=== PATIENT | female | born 1955 | race Caucasian/White ===

== ENCOUNTER 2021-03-24 20:32 | Emergency (ER) | payer MEDICARE, MEDICAID ==
[~2021-03-24] VITALS: Ht 160 cm; Wt 63.0 kg
[2021-03-24] MEDS ORDERED: acetaminophen 325mg tablet PO ONE ×2 (22:30→23:05)
[2021-03-25] VITALS: BP 170/94
[2021-03-25] MEDS ORDERED: TETanus/Pertussis (Acell)/Diphther VAC/PF (Tdap-Adult) 0.5ml syringe IMVAC ONE
--- NOTE | 2021-03-25 | NUR ---
PT REPEATEDLY ATTMEPTING TO AMBULATE FROM UNIT IN ANY DIRECTION SHE CAN FIND. PT BELIEVES HER DAUGHTER IS OUTSIDE WAITING FOR HER BUT THAT IS UNTRUE. PT COOOPERATIVE WHEN REDIRECTED BACK INSIDE TO WAIT FOR RESULT OF CT.
== END 2021-03-25 00:29 | disposition home or self-care (01) ==
LOC: ER 20:33
DX: S01.81XA Laceration without foreign body of other part of head, initial encounter (principal); Z72.89 Other problems related to lifestyle; W19.XXXA Unspecified fall, initial encounter; Y93.89 Activity, other specified; Y92.89 Other specified places as the place of occurrence of the external cause; Y99.8 Other external cause status
CPT/HCPCS: 70450; 70486; 72125; 90471; 90715; 99285

== ENCOUNTER 2022-08-03 14:38 | Inpatient (IN) | payer MEDICARE, MEDICAID ==
[~2022-08-03] VITALS: Ht 165.1 cm; Wt 63.0 kg
[2022-08-03] MEDS ORDERED: normal saline 1000ML IV soln IV ONE (14:50)
[2022-08-03] MEDS ORDERED: CefTRIAXone 2gm/D5W 50ml BAG 50 ML IV ONE (14:50)
[2022-08-03] MEDS ORDERED: acetaminophen 325mg tablet PO STA (14:50)
[2022-08-03 16:03] LABS: BASOPHILS % (AUTO) 0.4 % (0-1); EOSINOPHILS # (AUTO) 0.1 X10'3 (0-0.9); EOSINOPHILS % (AUTO) 0.6 % (0-6); HEMATOCRIT 44.8 % (35.0-45.0); HEMOGLOBIN 15.2 g/dl (12.0-16.0); LYMPHOCYTES # (AUTO) 1.6 X10'3 (1.1-4.8); LYMPHOCYTES % (AUTO) 19.1 % (21-51); MEAN CORPUSCULAR HEMOGLOBIN 32.4 PG (27.0-31.0); MEAN CORPUSCULAR HGB CONC 33.9 g/dL (33.0-36.5); MEAN CORPUSCULAR VOLUME 95.7 FL (78-98); MEAN PLATELET VOLUME 8.9 FL (7.4-10.4); MONOCYTES # (AUTO) 0.8 X10'3 (0-0.9); MONOCYTES % (AUTO) 8.8 % (2-12); NEUTROPHILS # (AUTO) 6.1 X10'3 (1.8-7.7); NEUTROPHILS % (AUTO) 71.1 % (42-75); PLATELET COUNT 243 X10'3 (140-440); RED BLOOD COUNT 4.68 X10'6 (4.20-5.60); RED CELL DISTRIBUTION WIDTH 13.2 % (11.5-14.5); WHITE BLOOD COUNT 8.6 X10'3 (4.5-11.0)
[2022-08-03 16:18] LABS: ALANINE AMINOTRANSFERASE 34 U/L (12-78); ALBUMIN 4.6 G/DL (3.4-5.0); ALBUMIN/GLOBULIN RATIO 1.2 (1.1-1.5); ALKALINE PHOSPHATASE 82 IU/L (46-116); ANION GAP 12 (8-16); ASPARTATE AMINO TRANSFERASE 74 U/L (10-37); BILIRUBIN,TOTAL 1.1 MG/DL (0.1-1.0); BLOOD UREA NITROGEN 53 MG/DL (7-18); BUN/CREATININE RATIO 29.1 (6.6-38.0); CALCIUM 10.2 MG/DL (8.5-10.1); CHLORIDE 98 MMOL/L (99-107); CREATININE 1.82 MG/DL (0.40-0.90); GLUCOSE 131 MG/DL (70-104); POTASSIUM 3.5 MMOL/L (3.5-5.1); SODIUM 141 MMOL/L (135-145); TOTAL CARBON DIOXIDE 30.7 MMOL/L (24-32); TOTAL PROTEIN 8.6 G/DL (6.4-8.2); eGFR 28 ML/MIN
[2022-08-03 17:32] LABS: CLARITY,URINE CLEAR (Clear); COLOR,URINE YELLOW (Yellow); GLUCOSE, URINE NEGATIVE (Neg); KETONES,URINE 15 mg/dl (Neg); LEUKOCYTE ESTERASE ,URINE NEGATIVE (Neg); NITRITES, URINE NEGATIVE (Neg); OCCULT BLOOD,URINE TRACE-INTACT (Neg); PH,URINE 5.5 (4.8-8.0); PROTEIN,URINE 100 mg/dl (Neg); UROBILINOGEN,URINE 0.2 E.U/dL (0.2-1.0)
[2022-08-03 17:45] LABS: UA COLLECTION TYPE STRAIGHT CATH
[2022-08-03] MEDS ORDERED: mag hydrox/Alum hydrox/simeth 30ml oral suspension PO PRN (17:45)
[2022-08-03] MEDS ORDERED: acetaminophen 325mg tablet PO PRN (17:45)
[2022-08-03] MEDS ORDERED: magnesium Cl slow-release 64mg tablet PO PRN (17:45)
[2022-08-03] MEDS ORDERED: magnesium hydroxide 30ml (MOM) UD suspension PO PRN (17:45)
[2022-08-03] MEDS ORDERED: potassium Cl 40MEQ/1/2NS 520ml 520 ML IV PRN (17:45)
[2022-08-03] MEDS ORDERED: ondansetron/PF 4mg/2ml inj IV PRN (17:45)
[2022-08-03] MEDS ORDERED: magnesium 4gm in 100ml NS 100 ML IV PRN (17:45)
[2022-08-03] MEDS ORDERED: potassium Cl 20 mEq SR tablet PO PRN (17:45)
[2022-08-03 17:47] LABS: BACTERIA,URINE 3+ /HPF (Neg); RBC,URINE 0-2 /HPF (0-2); SQUAMOUS EPITHELIAL CELL,UR NONE SEEN /LPF (FEW); WBC,URINE 0-4 /HPF (0-4)
[2022-08-03] MEDS: normal saline 1000ml 1,000 ML IV SCH (18:06)
--- NOTE | 2022-08-03 19:06 | NUR ---
Patient resting comfortably on gurney, pending admit. She did wake and is able to answer basic questions and follow direction, but still has some confusion
[2022-08-03] MEDS: docusate sod 100mg capsule PO SCH (20:00)
[2022-08-03] MEDS: K and/or MAG REPLACEMENT MC SCH (20:00)
--- NOTE | 2022-08-03 22:45 | NUR ---
Patient came up from ER on a Gurney. Patient is now in bed resting in a semi-fowlers position. Patient is alert and oriented times 4. Call light is within reach and all personal belongings within reach.
--- NOTE | 2022-08-04 02:00 | NUR ---
Dr. Salinas made aware patient pulse is 44 but has gone up to 50s. No new orders given
[2022-08-04 03:00] VITALS: BP 145/66
[2022-08-04] MEDS: normal saline 1000ml 1,000 ML IV SCH ×3 (03:52→23:45)
--- NOTE | 2022-08-04 04:00 | NUR ---
Dr. Salinas made aware of patient pauses on tele monitor, no new orders given
[2022-08-04 06:00] VITALS: BP 142/82
--- NOTE | 2022-08-04 06:12 | NUR ---
Patient in bed with the head of the bed elevated to a semi-fowlers position. Patient has no sogns or symptoms of distress. Call light within reach and all personal belongings within reach
[2022-08-04 06:23] LABS: ALBUMIN 3.7 G/DL (3.4-5.0); ANION GAP 8 (8-16); BLOOD UREA NITROGEN 51 MG/DL (7-18); BUN/CREATININE RATIO 35.2 (6.6-38.0); CALCIUM 8.9 MG/DL (8.5-10.1); CHLORIDE 102 MMOL/L (99-107); CREATININE 1.45 MG/DL (0.40-0.90); GLUCOSE 73 MG/DL (70-104); MAGNESIUM 2.3 MG/DL (1.5-2.4); SODIUM 140 MMOL/L (135-145); eGFR 36 ML/MIN
[2022-08-04 06:26] LABS: BASOPHILS % (AUTO) 0.5 % (0-1); EOSINOPHILS # (AUTO) 0.2 X10'3 (0-0.9); EOSINOPHILS % (AUTO) 2.8 % (0-6); HEMATOCRIT 39.8 % (35.0-45.0); HEMOGLOBIN 13.7 g/dl (12.0-16.0); LYMPHOCYTES % (AUTO) 45.3 % (21-51); MEAN CORPUSCULAR HEMOGLOBIN 33.3 PG (27.0-31.0); MEAN CORPUSCULAR HGB CONC 34.3 g/dL (33.0-36.5); MEAN CORPUSCULAR VOLUME 97.1 FL (78-98); MEAN PLATELET VOLUME 8.8 FL (7.4-10.4); MONOCYTES % (AUTO) 14.8 % (2-12); NEUTROPHILS # (AUTO) 2.4 X10'3 (1.8-7.7); NEUTROPHILS % (AUTO) 36.6 % (42-75); PLATELET COUNT 161 X10'3 (140-440); RED BLOOD COUNT 4.11 X10'6 (4.20-5.60); RED CELL DISTRIBUTION WIDTH 13.3 % (11.5-14.5); WHITE BLOOD COUNT 6.5 X10'3 (4.5-11.0)
[2022-08-04 06:43] LABS: POTASSIUM 2.9 MMOL/L (3.5-5.1)
[2022-08-04] MEDS ORDERED: CefTRIAXone/D5W-Rocephin 1gm 50 ML IV SCH (08:00)
[2022-08-04] MEDS: K and/or MAG REPLACEMENT MC SCH ×2 (08:00→20:00)
[2022-08-04] MEDS: potassium Cl 20 mEq SR tablet PO PRN ×3 (08:55→20:22)
[2022-08-04] MEDS: docusate sod 100mg capsule PO SCH ×2 (08:55→20:00)
[2022-08-04] MEDS: enoxaparin 40mg/0.4ml syringe SUBCUT SCH (08:56)
[2022-08-04 10:00] VITALS: BP 137/83
[2022-08-04 15:00] VITALS: BP 136/66
[2022-08-04 18:00] VITALS: BP 141/71
[2022-08-04] MEDS ORDERED: potassium Cl 40MEQ/1/2NS 520ml 520 ML IV ONE ×2 (19:00→23:00)
[2022-08-04] MEDS ORDERED: GABA600T13 PO (19:20)
[2022-08-04] MEDS ORDERED: BACL10TA2 PO (19:20)
[2022-08-04] MEDS ORDERED: TIZA-205 PO (19:20)
[2022-08-04] MEDS ORDERED: PROP20TA6 PO (19:20)
[2022-08-04] MEDS ORDERED: DIAZ5TAB23 PO (19:20)
[2022-08-04] MEDS ORDERED: MIRT-87 PO (19:20)
[2022-08-04] MEDS ORDERED: HYDR25TA4 PO (19:20)
[2022-08-04] MEDS ORDERED: AMLO5TAB16 PO (19:20)
[2022-08-04] MEDS ORDERED: LISI40TA13 PO (19:20)
[2022-08-05 03:00] VITALS: BP 132/65
--- NOTE | 2022-08-05 05:30 | NUR ---
Patient in bed with the head of the bed elevated to semi-fowlers position. Call light within reach and all personal belongings within reach
[2022-08-05 06:06] VITALS: BP 141/56
[2022-08-05 06:19] LABS: BASOPHILS % (AUTO) 0.5 % (0-1); EOSINOPHILS # (AUTO) 0.2 X10'3 (0-0.9); EOSINOPHILS % (AUTO) 2.7 % (0-6); HEMATOCRIT 37.1 % (35.0-45.0); HEMOGLOBIN 12.6 g/dl (12.0-16.0); LYMPHOCYTES # (AUTO) 2.3 X10'3 (1.1-4.8); LYMPHOCYTES % (AUTO) 39.7 % (21-51); MEAN CORPUSCULAR HEMOGLOBIN 32.9 PG (27.0-31.0); MEAN CORPUSCULAR VOLUME 96.8 FL (78-98); MEAN PLATELET VOLUME 8.6 FL (7.4-10.4); MONOCYTES # (AUTO) 0.5 X10'3 (0-0.9); MONOCYTES % (AUTO) 8.3 % (2-12); NEUTROPHILS # (AUTO) 2.8 X10'3 (1.8-7.7); NEUTROPHILS % (AUTO) 48.8 % (42-75); PLATELET COUNT 174 X10'3 (140-440); RED BLOOD COUNT 3.83 X10'6 (4.20-5.60); RED CELL DISTRIBUTION WIDTH 13.1 % (11.5-14.5); WHITE BLOOD COUNT 5.8 X10'3 (4.5-11.0)
[2022-08-05 06:30] LABS: ALBUMIN 3.4 G/DL (3.4-5.0); ANION GAP 7 (8-16); BLOOD UREA NITROGEN 41 MG/DL (7-18); BUN/CREATININE RATIO 37.3 (6.6-38.0); CALCIUM 9.3 MG/DL (8.5-10.1); CHLORIDE 104 MMOL/L (99-107); GLUCOSE 87 MG/DL (70-104); POTASSIUM 4.4 MMOL/L (3.5-5.1); SODIUM 139 MMOL/L (135-145); TOTAL CARBON DIOXIDE 28.4 MMOL/L (24-32); eGFR 50 ML/MIN
[2022-08-05] MEDS: K and/or MAG REPLACEMENT MC SCH (07:02)
[2022-08-05] MEDS ORDERED: aspirin 81mg, enteric-coated 1 TAB TABLET.DR PO SCH (08:00)
[2022-08-05] MEDS ORDERED: atorvastatin 20mg tablet PO SCH (08:00)
[2022-08-05] MEDS: enoxaparin 40mg/0.4ml syringe SUBCUT SCH (09:52)
[2022-08-05] MEDS: docusate sod 100mg capsule PO SCH (09:53)
[2022-08-05] MEDS: normal saline 1000ml 1,000 ML IV SCH (09:53)
[2022-08-05] MEDS ORDERED: clopidogrel 75mg tablet PO ONE ×2 (10:50→15:20)
[2022-08-05 10:58] LABS: CHOL/HDL RATIO 5.8 (0.00-4.99); CHOLESTEROL 239 MG/DL (0-200); HDL CHOLESTEROL 41 MG/DL (35-60); LDL CHOLESTEROL 168 MG/DL (50-100); TRIGLYCERIDES 139 MG/DL (20-135)
[2022-08-05 11:03] VITALS: BP 163/69
[2022-08-05 11:22] LABS: HEMOGLOBIN A1C 5.2 % (4.5-6.2)
--- NOTE | 2022-08-05 12:09 | NUR ---
Student documentation: I have reviewed and agree with all interventions, assessments performed and documented by Makenna student nurse.
[2022-08-05] MEDS ORDERED: amLODIPine 5mg tablet PO SCH (13:07)
[2022-08-05] MEDS ORDERED: ASPI-1071 PO (15:05)
[2022-08-05] MEDS ORDERED: ATOR-2 PO (15:05)
[2022-08-05] MEDS ORDERED: CLOP75TA34 PO (15:05)
[2022-08-05] MEDS ORDERED: clopidogrel 300mg tablet PO ONE (15:10)
[2022-08-05 15:15] VITALS: BP 165/78
[2022-08-06] MEDS ORDERED: clopidogrel 75mg tablet PO SCH (08:00)
[2022-08-06] MEDS ORDERED: atorvastatin 20mg tablet PO SCH (08:00)
== END 2022-08-05 16:45 | disposition home or self-care (01) | DRG 64 ==
LOC: ER 14:38 → ED HOLD 17:48 → PCU 3S 21:49
PROVIDERS: ADMIT Family Medicine; ATTEND Family Medicine
DX: I63.9 Cerebral infarction, unspecified (principal); G92.8 Other toxic encephalopathy; N17.0 Acute kidney failure with tubular necrosis; I25.10 Atherosclerotic heart disease of native coronary artery without angina pectoris; E87.6 Hypokalemia; E78.5 Hyperlipidemia, unspecified; R29.702 NIHSS score 2; R29.810 Facial weakness; W18.39XA Other fall on same level, initial encounter; E86.0 Dehydration; F17.210 Nicotine dependence, cigarettes, uncomplicated; I10 Essential (primary) hypertension; R29.6 Repeated falls; S00.83XA Contusion of other part of head, initial encounter; Z79.02 Long term (current) use of antithrombotics/antiplatelets; Z79.82 Long term (current) use of aspirin; Z79.899 Other long term (current) drug therapy; Z90.710 Acquired absence of both cervix and uterus; Z95.1 Presence of aortocoronary bypass graft; Y93.89 Activity, other specified; Y92.098 Other place in other non-institutional residence as the place of occurrence of the external cause; Y99.8 Other external cause status
CPT/HCPCS: 36415; 70450; 70544; 70551; 71045; 80048; 80053; 80061; 81001; 83036; 83605; 83735; 84132; 84145; 85025; 87040; 87081; 87088; 93005; 93306; 93880; 96365; 96366; 96375; 97116; 97161; 97530; 99285; G0378; J0696; J1650; J7030

== ENCOUNTER 2025-01-09 12:32 | Outpatient (CLI) | payer MEDICARE, MEDICAID ==
[~2025-01-09 12:32] MED LIST: AMLO5TAB16 PO; ASPI-1071 PO; ATOR-2 PO; CLOP75TA34 PO; LISI40TA20 PO; MIRT-87 PO; PROP20TA6 PO; TIZA-205 PO
--- NOTE | 2025-01-09 14:32 | RADIOLOGY REPORT ---
[facility] - [facility] INDICATION: CHRONIC MID BACK PAIN COMPARISON: CHEST,SINGLE VIEW on DOS: 08/03/22, CT CERVICAL SPINE on DOS: 03/24/21 TECHNIQUE:4 views of the thoracic spine were obtained. FINDINGS: The thoracic vertebral alignment is normal. Chronic compression fractures of the T7 and T11 vertebral body No acute fracture, vertebral compression deformity or aggressive osseous lesions. The imaged thorax and abdomen are grossly unremarkable. IMPRESSION: No acute fracture.
--- NOTE | 2025-01-09 14:33 | RADIOLOGY REPORT ---
INDICATION: CHRONIC MID BACK PAIN COMPARISON: None TECHNIQUE: 3 views of the lumbar spine were obtained. FINDINGS: The lumbar vertebral alignment is normal. Multilevel degenerative changes most severe at L4-L5 and L5-S1 with moderate to severe neural foramin al spinal canal stenosis. No acute fracture, vertebral compression deformity or aggressive osseous lesions. The paravertebral soft tissues are grossly unremarkable. IMPRESSION: No acute fracture or subluxation.
== END 2025-01-09 23:59 | disposition home or self-care (01) ==
LOC: RAD 12:32
PROVIDERS: ATTEND Family Medicine
DX: S22.060A Wedge compression fracture of T7-T8 vertebra, initial encounter for closed fracture (principal); S22.080A Wedge compression fracture of T11-T12 vertebra, initial encounter for closed fracture; M54.9 Dorsalgia, unspecified; M47.816 Spondylosis without myelopathy or radiculopathy, lumbar region; X58.XXXA Exposure to other specified factors, initial encounter; Y93.89 Activity, other specified; Y92.89 Other specified places as the place of occurrence of the external cause; Y99.8 Other external cause status
CPT/HCPCS: 72074; 72110